=== PATIENT | female | born 1995 | race Caucasian/White ===

== ENCOUNTER 2021-01-16 11:49 | Outpatient (CLI) | payer MEDICAID ==
[~2021-01-16] VITALS: Ht 162.6 cm; Wt 70.5 kg
--- NOTE | 2021-01-16 12:00 | NUR ---
Patient ambulatory onto unit for labor check. Patient reports tightening in abdomen and vaginal pressure since last evening, that has started to become painful over the last 2 hours. Patient reports good movement and increased vaginal discharge. Patient denies leaking of fluid or vaginal bleeding. EFMs on, VS taken. SVE /-2, soft, midposition, bloody show noted on exam glove. notified, orders received. IV started by Roberto RN, LR infusing per orders. Assessment completed. Will continue to monitor.
[2021-01-16 12:15] VITALS: BP 98/65; PULSE 95; TEMP 98
[2021-01-16] MEDS ORDERED: PRENATAL VITAMI1 TA3 PO (12:24)
[2021-01-16 12:30] VITALS: BP 99/54; PULSE 99
[2021-01-16 13:00] VITALS: BP 89/50; PULSE 97
[2021-01-16 13:17] LABS: COLLECTION METHOD CLEAN CATCH
[2021-01-16 13:22] LABS: MUCOUS Present /lpf; PH 5 (5-8); SQUAMOUS EPITHELIAL 0-2 /hpf; URINE APPEARANCE Hazy; URINE BACTERIA Rare /hpf; URINE BILIRUBIN Negative (NEGATIVE); URINE BLOOD Negative (NEGATIVE); URINE COLOR Yellow; URINE GLUCOSE Negative (NEGATIVE); URINE KETONE Negative (NEGATIVE); URINE LEUKOCYTE ESTERASE Trace (NEGATIVE); URINE NITRATE Negative (NEGATIVE); URINE PROTEIN(semi-quant) Negative (NEGATIVE); URINE UROBILINOGEN Negative (NEGATIVE); URINE WBC 0-2 /hpf
[2021-01-16 13:30] VITALS: BP 90/53; PULSE 99
[2021-01-16 14:00] VITALS: BP 106/62; PULSE 100
--- NOTE | 2021-01-16 14:20 | NUR ---
EFMs off at 1400. Discharge instructions and return precautions reviewed. Questions answered. Patient verbalized understanding. Ambulatory off of unit at at 1420.
== END 2021-01-16 14:20 | disposition home or self-care (01) ==
LOC: LDRO
PROVIDERS: Obstetrics & Gynecology
DX: O62.9 Abnormality of forces of labor, unspecified (principal); Z3A.31 31 weeks gestation of pregnancy
CPT/HCPCS: J3105; J7120

== ENCOUNTER 2021-03-06 18:23 | Inpatient (IN) | payer MEDICAID ==
[~2021-03-06] VITALS: Ht 165.1 cm; Wt 69.5 kg
[~2021-03-06 18:23] MED LIST: PRENATAL VITAMI1 TA3 PO
--- NOTE | 2021-03-06 18:30 | NUR ---
PT ARRIVED TO UNIT AMBULATORY WITH FOB WITH COMPLAINTS OF CONTRACTIONS SINCE YESTERDAY AFTERNOON. PT ORIENTED TO ROOM, CHANGED INTO GOWN, VS OBTAINED, EFMX2 APPLIED, SVE PERFORMED.
[2021-03-06 19:00] VITALS: BP 108/67; PULSE 105; TEMP 98.2
[2021-03-06 19:30] VITALS: PULSE 97
[2021-03-06 20:00] VITALS: PULSE 94
[2021-03-06 20:29] LABS: HEMATOCRIT 37.1 % (37.0-47.0); HEMOGLOBIN 12.3 g/dl (12.5-16.0); MEAN CELL VOLUME 93 fl (80.0-100.0); MEAN CORPUSCULAR HEMOGLOBIN 31 pg (27.0-31.0); MEAN CORPUSCULAR HGB CONC 33 g/dl (33.0-37.0); MEAN PLATELET VOLUME 9.3 fl (7.4-10.4); PLATELET COUNT 243 K/mm3 (130-400); REDCELL DISTRIBUTION WIDTH-CV 12.3 % (11.5-14.5)
--- NOTE | 2021-03-06 20:43 | NUR ---
PT OFF MONITORS TO AMBULATE IN ROOM AND USE BIRTHING BALL.
[2021-03-06 21:48] LABS: BAND 9 % (0-10); LYMPHOCYTE 28 % (20.0-51.0); NEUTROPHILS 54 % (42.0-75.2)
[2021-03-06 22:00] VITALS: BP 112/67; PULSE 99; TEMP 97.9
--- NOTE | 2021-03-06 22:38 | NUR ---
PT OFF MONITORS AT THIS TIME TO AMBULATE.
[2021-03-06 23:57] VITALS: BP 110/73; PULSE 90; TEMP 98.4
--- NOTE | 2021-03-06 23:57 | NUR ---
MONITORING DC'D AT THIS TIME.
[2021-03-07] VITALS (27 sets, daily range): BP systolic 75–116; BP diastolic 47–70; PULSE 62–118; TEMP 97.4–98
--- NOTE | 2021-03-07 01:13 | NUR ---
monitoring off for pt to ambulate in room.
--- NOTE | 2021-03-07 05:15 | NUR ---
0500- Faisal SANDERS CRNA IN ROOM FOR EPIDURAL PLACEMENT. PT SITTING UP AT BEDSIDE. 0510- TEST DOSE GIVEN BY Faisal SANDERS CRNA, PT TOLERATED WELL.
--- NOTE | 2021-03-07 05:45 | NUR ---
PT SUPINE FOR BRITT PLACEMENT. BRITT PLACED BY PIERRE CASANOVA. SVE PERFORMED BY THIS NURSE. DURING SVE PT STATES, "I FEEL LIKE I'M GONNA THROW UP AND LIKE I'M GONNA PASS OUT." HEAD OF BED UP, PT VOMITS, PREVIOUS BLOOD PRESSURE OF 75/47. 10MG OF EPHEDRINE GIVEN AT 0551. PT IS PALE, DIAPHORETIC, DISORIENTED, RESPONDS TO STIMULUS. BP NOTED AT 81/46. PT STATES, "I'M FEELING BETTER". 2ND DOSE OF EPHEDRINE GIVEN, BP NOTED AT 95/52. PT STATES, "I FEEL LIKE MYSELF NOW". BRITT PLACED IN THE VAGINA, CAME OUT WHEN PT VOMITED. BRITT REPLACED AT 0600M, BP NOTED AT 103/60.
--- NOTE | 2021-03-07 06:45 | NUR ---
Assumed care of patient. Rests in bed, alert. Denies any pain or needs at this time.
--- NOTE | 2021-03-07 07:15 | NUR ---
Pitocin 2 kay units iv started as ordered and per protocol.
--- NOTE | 2021-03-07 08:30 | NUR ---
5181 Dr. Mcgee called and updated. Let her know that patient has an anterior lip. Also that having some early decels and maybe a few lates. States will come for delivery.
--- NOTE | 2021-03-07 08:50 | NUR ---
Ephedrine 10 mg iv given for blood pressure of 87/50. Back up to 112/73. heart tones down in the [id number]. Repositioned right to left, back to right. [address] Mcgee here. Prepped for delivery. 0859 Pushes with contractions. 0903 Spontaneous delivery of baby boy by Dr. Mcgee. 0907 Spontaneous delivery of placenta by Dr. Mcgee. Pitocin infusing at 333ccs as ordered and per protocol.
--- NOTE | 2021-03-07 09:10 | NUR ---
Holds baby lovingly, tearful, spouse at bedside. Repair work done by Dr. Palm
--- NOTE | 2021-03-07 09:10 | NUR ---
Methergine 0.2 mg im to left anterior thigh as ordered.
--- NOTE | 2021-03-07 11:00 | NUR ---
Rests in bed, alert. Denies any needs at this time.
--- NOTE | 2021-03-07 12:30 | NUR ---
To bathroom via wheel chair. States right leg still pretty numb. Voids moderate amount of clear yellow urine. To room 218 via wheel chair, assisted to bed. Oriented to room.
--- NOTE | 2021-03-07 18:30 | NUR ---
Report recieved. Resting in bed. Reports going to put to breast. Updated whiteboard and reviewed POC.
[2021-03-08 03:30] VITALS: BP 94/62; PULSE 87; TEMP 97.7
[2021-03-08 07:30] VITALS: BP 97/63; PULSE 87; TEMP 97.6
[2021-03-08] MEDS ORDERED: IBU600 MG PO (08:53)
== END 2021-03-08 11:00 | disposition home or self-care (01) | DRG 807 ==
LOC: LDRO 18:23 → LDR 18:30 → LDRO 20:17 → LDR 20:18 → OB 03-07 18:53
PROVIDERS: Obstetrics & Gynecology; ADMIT Obstetrics & Gynecology
PROC: 10E0XZZ Delivery of Products of Conception, External Approach (ICD-10-PCS; principal; 2021-03-06)
PROC: 10907ZC Drainage of Amniotic Fluid, Therapeutic from Products of Conception, Via Natural or Artificial Opening (ICD-10-PCS; 2021-03-06)
PROC: 0UQMXZZ Repair Vulva, External Approach (ICD-10-PCS; 2021-03-06)
DX: O99.52 Diseases of the respiratory system complicating childbirth (principal); Z37.0 Single live birth; J45.909 Unspecified asthma, uncomplicated; O99.344 Other mental disorders complicating childbirth; F41.9 Anxiety disorder, unspecified; O99.62 Diseases of the digestive system complicating childbirth; K64.9 Unspecified hemorrhoids; O72.1 Other immediate postpartum hemorrhage; O69.81X0 Labor and delivery complicated by cord around neck, without compression, not applicable or unspecified; O70.0 First degree perineal laceration during delivery; Z3A.38 38 weeks gestation of pregnancy
CPT/HCPCS: J2210; J2590; J7120